=== PATIENT | female | born 1935 | race Caucasian/White ===

== ENCOUNTER → 2017-11-11 13:10 | Outpatient (CLI) | payer MEDICARE, OTHER, SELFPAY | PROVIDERS: Family Provider Internal Medicine; PCP Internal Medicine; Visit Provider Internal Medicine | DX: R60.9 Edema, unspecified (principal) | CPT/HCPCS: 93970 ==

== ENCOUNTER → 2019-07-28 10:22 | Outpatient (CLI) | payer MEDICARE, SELFPAY ==
--- NOTE | 2019-07-28 10:42 | RAD_ITS ---
STUDY: X-RAY CHEST REASON FOR EXAM: Female, 84 years old. CHF TECHNIQUE: PA and lateral views of the chest. COMPARISON: Comparison is made with prior examination dated July 07, 2015. FINDINGS: Hyperinflation. Stable mild increased markings at the lung bases suggestive of bibasilar scarring. There is no demonstrated pleural abnormality. There is mild cardiac enlargement. Normal mediastinum and ching. Normal visualized pulmonary arteries. There is atherosclerotic calcification of the aortic arch with tortuosity. There are diffuse degenerative changes of the visualized thoracic spine. Normal visualized ribs, clavicles, and shoulders. There is no demonstrated abnormality of the visualized soft tissue structures of the upper abdomen. RAD/Chest PA and Lateral IMPRESSION: Hyperinflation. Stable mild degree of increased markings at the lung bases suggestive of bibasilar scarring. Electronically Signed: Evin Cruz, at 11:18 EDT , Service support ,
== END ==
PROVIDERS: PCP Internal Medicine; Referring Provider Internal Medicine; Visit Provider Internal Medicine
DX: I50.9 Heart failure, unspecified (principal)
CPT/HCPCS: 71046

== ENCOUNTER → 2019-10-04 09:13 | Outpatient (CLI) | payer MEDICARE, SELFPAY ==
--- NOTE | 2019-10-04 09:22 | RAD_ITS ---
STUDY: X-RAY LEFT FOOT, SECOND TOE REASON FOR EXAM: Female, 84 years old. ULCER ON LEFT 2ND TOE. TECHNIQUE: 4 view(s) of the toe were obtained. COMPARISON: None. FINDINGS: The bones are diffusely demineralized. There is no demonstrated fracture sebaceous osseous lesion. 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 No demonstrated subcutaneous emphysema. However, a subtle fracture or erosive lesion could easily be present and overlooked due to the osteopenia and overlapping osseous structures. If osteomyelitis or fracture remains a strong clinical concern, recommend further evaluation with CT RAD/Toe(s) Min 2 Views IMPRESSION: Diffuse osteopenia with degenerative arthrosis and nonspecific soft tissue swelling. No demonstrated fracture or erosive osseous lesion, please see discussion above Electronically Signed: Jon Rosario MD at 9:51 EDT , Service support ,
== END ==
PROVIDERS: PCP Internal Medicine; Referring Provider Internal Medicine; Visit Provider Internal Medicine
DX: L97.529 Non-pressure chronic ulcer of other part of left foot with unspecified severity (principal)
CPT/HCPCS: 73660